=== PATIENT | male | born 1985 | race African-American/Black ===

== ENCOUNTER → 2018-08-17 | Emergency (ER) | payer SELFPAY ==
[~2018-08-17] MED LIST: Ibuprofen 200 MG TAB ONE; diphenhydrAMINE 25 MG CAP ONE
== END ==
LOC: BURERS 14:38
DX: H92.02 Otalgia, left ear (principal); E11.9 Type 2 diabetes mellitus without complications; I10 Essential (primary) hypertension; F17.210 Nicotine dependence, cigarettes, uncomplicated; Z79.84 Long term (current) use of oral hypoglycemic drugs; Z79.899 Other long term (current) drug therapy
CPT/HCPCS: 99281

== ENCOUNTER 2018-09-15 04:52 | Emergency (ER) | payer SELFPAY | END 2018-09-15 05:21 | disposition home or self-care (01) | LOC: BURERS 04:52 | DX: J06.9 Acute upper respiratory infection, unspecified (principal); E11.9 Type 2 diabetes mellitus without complications; I10 Essential (primary) hypertension; F17.210 Nicotine dependence, cigarettes, uncomplicated; Z79.899 Other long term (current) drug therapy | CPT/HCPCS: 99283 ==

== ENCOUNTER 2018-09-19 15:39 | Emergency (ER) | payer SELFPAY ==
--- NOTE | 2018-09-19 16:55 | RAD ---
CHEST TWO VIEWS: 09/19/18 Comparison is made with the 08/16/11 study. The heart is normal in size and the lungs are clears. There is no sign of pneumonia or pleural effusi on. The only area slightly in question was some of the left basilar lung markings on the PA film. I c ould not confirm an infiltrate on the lateral. If the patient were to continue with symptoms, there might need to be a followup film to re-examine the left lung base. IMPRESSION: Equivocal findings in the left lung base. Currently not solid enough to confidently diagnose pneumoni a. POS: HOME
== END 2018-09-19 16:19 | disposition home or self-care (01) ==
LOC: BURERS 15:39
DX: J06.9 Acute upper respiratory infection, unspecified (principal); I10 Essential (primary) hypertension; F17.210 Nicotine dependence, cigarettes, uncomplicated
CPT/HCPCS: 71046; 87804

== ENCOUNTER 2018-09-29 21:51 | Emergency (ER) | payer SELFPAY ==
[2018-09-29] MEDS ORDERED: Doxycycline Hyclate 100 MG TAB ONE (22:33)
== END 2018-09-29 22:35 | disposition home or self-care (01) ==
LOC: BURERS 21:51
DX: S90.862A Insect bite (nonvenomous), left foot, initial encounter (principal); T69.022A Immersion foot, left foot, initial encounter; E11.9 Type 2 diabetes mellitus without complications; I10 Essential (primary) hypertension; F31.9 Bipolar disorder, unspecified; F20.9 Schizophrenia, unspecified; F17.210 Nicotine dependence, cigarettes, uncomplicated; Z79.899 Other long term (current) drug therapy; W57.XXXA Bitten or stung by nonvenomous insect and other nonvenomous arthropods, initial encounter
CPT/HCPCS: 99283